=== PATIENT | female | born 1980 | race Caucasian/White ===

== ENCOUNTER 2017-10-20 08:16 | Outpatient (CLI) | payer OTHER | END 2017-10-20 17:00 | disposition home or self-care (01) | LOC: RX STUDY 08:16 | DX: R10.13 Epigastric pain (principal); K21.9 Gastro-esophageal reflux disease without esophagitis ==

== ENCOUNTER 2017-11-02 10:54 | Day surgery (SDC) | payer OTHER ==
[2017-11-02] MEDS ORDERED: NEXIUM 24HR20 MG PO (14:56)
== END 2017-11-02 15:55 | disposition home or self-care (01) ==
LOC: AMB-ENDOS 10:54
DX: K29.50 Unspecified chronic gastritis without bleeding (principal)